=== PATIENT | male | born 1970 | race Two or more races ===

== ENCOUNTER 2018-11-10 10:48 | Emergency (ER) | payer SELFPAY ==
[~2018-11-10] VITALS: Ht 180.3 cm; Wt 104.3 kg
[2018-11-10] MEDS ORDERED: SODIUM CHLORIDE 0.9% 1,000 ML IV ONE ×2 (10:55→14:15)
[2018-11-10] MEDS ORDERED: ONDANSETRON HCL 4 MG/2 ML VIAL IV ONE (11:00)
[2018-11-10] MEDS ORDERED: PROMETHAZINE HCL 25 MG/ML 1ML IV ONE (11:45)
[2018-11-10] MEDS ORDERED: LORazepam 2MG/ML-1ML VIAL IV ONE (11:45)
[2018-11-10 11:57] LABS: Basophils # (auto) 0.1 uL; Basophils % (auto) 0.7 % (0.0-2.0); Eosinophils # (auto) 0 uL; Hematocrit 52.6 % (41.0-53.0); Hemoglobin 18.4 g/dL (13.5-17.5); Lymphocytes # (auto) 2.1 uL; Lymphocytes % (auto) 27.3 % (10.0-50.0); Mean Corpuscular Hemoglobin 32.7 pg (28.0-32.0); Mean Corpuscular Volume 93.6 fL (80.0-100.0); Monocytes # (auto) 0.6 uL; Monocytes % (auto) 7.4 % (0.0-12.0); Neutrophils # (auto) 4.9 uL; Neutrophils % (auto) 64.6 % (37.0-80.0); Platelet Count (auto) 298 10^3/uL (140-450); Red Blood Cells 5.61 10^6/uL (4.5-5.90); Red Cell Distribution Width 12.9 % (11.8-14.3); White Blood Cell 7.6 10^3/uL (4.4-10.8)
[2018-11-10 12:29] LABS: Potassium 3.6 mmol/L (3.5-5.1)
[2018-11-10 12:36] LABS: Albumin 4.1 g/dL (3.4-5.0); BUN/Creatinine Ratio 8.3; Bilirubin, Total 0.7 mg/dL (0.2-1.0); Calcium 8.5 mg/dL (8.5-10.1); Total Protein 8.8 g/dL (6.4-8.2)
[2018-11-10 13:29] LABS: Urine Bacteria NONE SEEN /hpf (None Seen); Urine Blood Negative /uL (Negative); Urine Specific Gravity 1.005 (1.001-1.035); Urine WBC None Seen /hpf (0 - 3)
[2018-11-10 15:00] VITALS: BP 113/86
== END 2018-11-10 15:39 | disposition home or self-care (01) ==
LOC: ER 10:48
DX: F10.920 Alcohol use, unspecified with intoxication, uncomplicated (principal); Y90.0 Blood alcohol level of less than 20 mg/100 ml
CPT/HCPCS: 36415; 80053; 80320; 81001; 85025; 94761; 96361; 96374; 96375; 99283; J2060; J2405; J2550; J7030

== ENCOUNTER 2019-08-19 16:50 | Emergency (ER) | payer BC, OTHER ==
[~2019-08-19] VITALS: Ht 182.9 cm; Wt 90.7 kg
[2019-08-19] MEDS ORDERED: SODIUM CHLORIDE 0.9% 1,000 ML IV ONE (17:16)
[2019-08-19] MEDS ORDERED: PANTOPRAZOLE 40 MG TAB PO ONE (17:30)
[2019-08-19] MEDS ORDERED: PROMETHAZINE HCL 25 MG/ML 1ML IV ONE (17:45)
[2019-08-19] MEDS ORDERED: FOLIC ACID 1 MG, MULTIPLE VITAMIN 10 ML, MAGNESIUM SULF SDV 50% 8 MEQ, THIAMINE INJ 100... INJ SCH ×5 (18:00)
[2019-08-19 18:09] LABS: Basophils # (auto) 0 10 ^3/uL (0-0.2); Basophils % (auto) 0.5 % (0.0-2.0); Eosinophils # (auto) 0 10 ^3/uL (0-0.8); Eosinophils % (auto) 0.1 % (0.0-7.0); Hematocrit 49.9 % (41.0-53.0); Hemoglobin 17.3 g/dL (13.5-17.5); Lymphocytes # (auto) 1.6 10 ^3/uL (0.4-5.4); Lymphocytes % (auto) 24.5 % (10.0-50.0); Mean Corpuscular Hemoglobin 32.1 pg (28.0-32.0); Mean Corpuscular Hgb Conc. 34.7 g/dL (32.0-36.0); Mean Corpuscular Volume 92.4 fL (80.0-100.0); Monocytes # (auto) 0.5 10 ^3/uL (0-1.3); Monocytes % (auto) 7.1 % (0.0-12.0); Neutrophils # (auto) 4.4 10 ^3/uL (1.6-8.6); Neutrophils % (auto) 67.8 % (37.0-80.0); Nucleated Red Blood Cells % 0.2 %; Platelet Count (auto) 246 10^3/uL (140-450); Red Cell Distribution Width 13.1 % (11.8-14.3); White Blood Cell 6.5 10^3/uL (4.4-10.8)
[2019-08-19 18:24] LABS: Albumin 3.8 g/dL (3.4-5.0); Calcium 7.9 mg/dL (8.5-10.1); Potassium 3.7 mmol/L (3.5-5.1)
[2019-08-19 18:29] LABS: BUN/Creatinine Ratio 9.8; Bilirubin, Total 0.7 mg/dL (0.2-1.0)
[2019-08-19 19:20] VITALS: BP 110/66
[2019-08-19] MEDS ORDERED: LORazepam 2MG/ML-1ML VIAL IV ONE (19:45)
[2019-08-19 20:43] LABS: Urine Bacteria NONE SEEN /hpf (None Seen); Urine Blood Negative /uL (Negative); Urine Mucus FEW (None Seen); Urine Specific Gravity 1.003 (1.001-1.035); Urine WBC 1 /hpf (0 - 3)
[2019-08-19 20:58] LABS: Amphetamine Screen, Urine NEGATIVE (NEGATIVE); Barbiturate Scree,Urine NEGATIVE (NEGATIVE); Benzodiazephine Screen, Urine NEGATIVE (NEGATIVE); Cannabinoid Screen, Urine NEGATIVE (NEGATIVE); Cocaine Screen, Urine NEGATIVE (NEGATIVE); Opiate Scree,Urine NEGATIVE (NEGATIVE); Phencyclidine Screen, Urine NEGATIVE (NEGATIVE)
== END 2019-08-19 22:45 | disposition home or self-care (01) ==
LOC: EDBD 16:50 → ER 16:50
DX: F10.129 Alcohol abuse with intoxication, unspecified (principal); F41.9 Anxiety disorder, unspecified; F32.9 Major depressive disorder, single episode, unspecified; Y90.9 Presence of alcohol in blood, level not specified
CPT/HCPCS: 36415; 71045; 80053; 80307; 80320; 81001; 83735; 85025; 93005; 96365; 96366; 96375; 99285; J2060; J2550; J3411; J3475; J7030

== ENCOUNTER 2019-08-31 17:54 | Inpatient (IN) | payer BC, MEDICAID ==
[~2019-08-31] VITALS: Ht 180.3 cm; Wt 102.5 kg
[2019-08-31] MEDS ORDERED: SODIUM CHLORIDE 0.9% 1,000 ML IV ONE (18:18)
[2019-08-31 19:47] LABS: Basophils # (auto) 0 10 ^3/uL (0-0.2); Basophils % (auto) 0.5 % (0.0-2.0); Eosinophils # (auto) 0.1 10 ^3/uL (0-0.8); Eosinophils % (auto) 0.9 % (0.0-7.0); Hematocrit 34.6 % (41.0-53.0); Hemoglobin 12.1 g/dL (13.5-17.5); Lymphocytes # (auto) 1.4 10 ^3/uL (0.4-5.4); Lymphocytes % (auto) 19.6 % (10.0-50.0); Mean Corpuscular Volume 94.4 fL (80.0-100.0); Monocytes # (auto) 1.3 10 ^3/uL (0-1.3); Monocytes % (auto) 17.7 % (0.0-12.0); Neutrophils # (auto) 4.5 10 ^3/uL (1.6-8.6); Neutrophils % (auto) 61.3 % (37.0-80.0); Nucleated Red Blood Cells % 0.4 %; Platelet Count (auto) 198 10^3/uL (140-450); Red Blood Cells 3.66 10^6/uL (4.5-5.90); White Blood Cell 7.4 10^3/uL (4.4-10.8)
[2019-08-31 20:01] LABS: Albumin 2.6 g/dL (3.4-5.0)
[2019-08-31 20:06] LABS: BUN/Creatinine Ratio 14.3; Bilirubin, Total 0.7 mg/dL (0.2-1.0); Total Protein 6.6 g/dL (6.4-8.2)
[2019-08-31 20:17] LABS: Potassium 2.8 mmol/L (3.5-5.1)
[2019-08-31] MEDS ORDERED: POTASSIUM CHL 20MEQ/100ML 100 ML IV ONE (20:30)
[2019-08-31] MEDS ORDERED: PANTOPRAZOLE 40 MG/10 ML VIAL INJ IV ONE ×2 (20:45→21:15)
[2019-08-31] MEDS ORDERED: THIAMINE 100mg/ml INJ (200mg/2ml VIAL) IM ONE (21:00)
[2019-08-31] MEDS ORDERED: THIAMINE HCL 100 MG TAB PO ONE (21:00)
[2019-08-31] MEDS ORDERED: MULTIPLE VITAMIN TAB PO ONE (21:00)
[2019-08-31] MEDS ORDERED: LORazepam 2MG/ML-1ML VIAL IV PRN (21:00)
[2019-08-31] MEDS ORDERED: MAGNESIUM SULFATE 1GM/100ML 100 ML IV ONE (21:00)
[2019-08-31] MEDS ORDERED: FOLIC ACID 1 MG TAB PO ONE (21:00)
[2019-08-31] MEDS ORDERED: LORazepam 2MG/ML-1ML VIAL IV ONE (21:00)
[2019-08-31] MEDS ORDERED: ONDANSETRON HCL 4 MG/2 ML VIAL IV PRN (21:15)
[2019-08-31] MEDS ORDERED: TEMAZEPAM 15 MG CAP PO PRN (21:15)
[2019-08-31] MEDS ORDERED: NITROGLYCERIN 0.4 MG SL TAB SL PRN (21:15)
[2019-08-31] MEDS ORDERED: METOCLOPRAMIDE HCL 5MG/ml INJ 2ml VIAL IV PRN (21:15)
[2019-08-31] MEDS ORDERED: DOCUSATE SOD 100 MG CAP PO PRN (21:15)
[2019-08-31] MEDS ORDERED: HYDROcodone-ACET 5/325MG TAB PO PRN (21:15)
[2019-08-31] MEDS ORDERED: MORPHINE SULF INJ 2 MG/ML SYRINGE 1ML IV PRN ×2 (21:15)
[2019-08-31 22:28] VITALS: BP 116/67
[2019-08-31 23:00] VITALS: BP 116/67
[2019-08-31] MEDS: D5W/SOD CHL 0.9%/KCL 40MEQ 1,000 ML IV SCH (23:06)
[2019-08-31] MEDS: POTASSIUM CHL 20 Meq TABLET PO SCH (23:08)
[2019-09-01] MEDS: LORazepam 2MG/ML-1ML VIAL IV SCH ×4 (00:33→18:00)
[2019-09-01] MEDS: POTASSIUM CHL 20 Meq TABLET PO SCH (00:34)
[2019-09-01 05:08] VITALS: BP 95/58
[2019-09-01] MEDS: D5W/SOD CHL 0.9%/KCL 40MEQ 1,000 ML IV SCH ×2 (05:38→10:31)
[2019-09-01 06:55] LABS: Basophils # (auto) 0 10 ^3/uL (0-0.2); Basophils % (auto) 0.5 % (0.0-2.0); Eosinophils # (auto) 0.1 10 ^3/uL (0-0.8); Eosinophils % (auto) 1.4 % (0.0-7.0); Hematocrit 30.8 % (41.0-53.0); Hemoglobin 10.8 g/dL (13.5-17.5); Lymphocytes # (auto) 1.8 10 ^3/uL (0.4-5.4); Lymphocytes % (auto) 25.5 % (10.0-50.0); Mean Corpuscular Hemoglobin 33.6 pg (28.0-32.0); Mean Corpuscular Hgb Conc. 35.1 g/dL (32.0-36.0); Mean Corpuscular Volume 95.7 fL (80.0-100.0); Monocytes # (auto) 1.3 10 ^3/uL (0-1.3); Monocytes % (auto) 17.4 % (0.0-12.0); Neutrophils % (auto) 55.2 % (37.0-80.0); Nucleated Red Blood Cells % 0.4 %; Platelet Count (auto) 191 10^3/uL (140-450); Red Blood Cells 3.22 10^6/uL (4.5-5.90); Red Cell Distribution Width 14.1 % (11.8-14.3); White Blood Cell 7.2 10^3/uL (4.4-10.8)
[2019-09-01 07:27] LABS: % Iron Saturation 27.5 % (20-55)
[2019-09-01 07:33] LABS: Potassium 4.1 mmol/L (3.5-5.1)
[2019-09-01 07:48] LABS: Albumin 2.3 g/dL (3.4-5.0); BUN/Creatinine Ratio 11.8; Bilirubin, Total 0.7 mg/dL (0.2-1.0); Calcium 7.7 mg/dL (8.5-10.1); Phosphorus 2.8 mg/dL (2.5-4.90); Total Protein 5.7 g/dL (6.4-8.2)
[2019-09-01 09:00] VITALS: BP 97/58
[2019-09-01] MEDS: THIAMINE HCL 100 MG TAB PO SCH (09:53)
[2019-09-01] MEDS: MULTIPLE VITAMIN TAB PO SCH (09:54)
[2019-09-01] MEDS: FOLIC ACID 1 MG TAB PO SCH (09:54)
[2019-09-01] MEDS: ALUM & MAG HYDROX-SIMETH LIQ(MAALOX) 30 ML PO PRN (10:00)
[2019-09-01 13:00] VITALS: BP 95/57
[2019-09-01 17:00] VITALS: BP 104/65
[2019-09-01 22:00] VITALS: BP 108/62
[2019-09-01] MEDS: PANTOPRAZOLE 40 MG/10 ML VIAL INJ IV SCH (22:38)
[2019-09-02] VITALS (8 sets, daily range): BP systolic 100–118; BP diastolic 60–73
[2019-09-02] MEDS: LORazepam 2MG/ML-1ML VIAL IV SCH ×2 (06:14→18:00)
[2019-09-02] MEDS: MULTIPLE VITAMIN TAB PO SCH (10:55)
[2019-09-02] MEDS: FOLIC ACID 1 MG TAB PO SCH (10:55)
[2019-09-02] MEDS: THIAMINE HCL 100 MG TAB PO SCH (10:55)
[2019-09-02] MEDS: ALUM & MAG HYDROX-SIMETH LIQ(MAALOX) 30 ML PO PRN (14:16)
[2019-09-02] MEDS: LORazepam 2MG/ML-1ML VIAL IV PRN (21:23)
[2019-09-02] MEDS: PANTOPRAZOLE 40 MG/10 ML VIAL INJ IV SCH (21:23)
[2019-09-03] MEDS: LORazepam 2MG/ML-1ML VIAL IV PRN (04:38)
[2019-09-03 05:44] VITALS: BP 104/69
[2019-09-03 08:00] VITALS: BP 105/48
[2019-09-03 08:52] VITALS: BP 105/48
[2019-09-03] MEDS: FOLIC ACID 1 MG TAB PO SCH (09:42)
[2019-09-03] MEDS: THIAMINE HCL 100 MG TAB PO SCH (09:42)
[2019-09-03] MEDS: MULTIPLE VITAMIN TAB PO SCH (09:42)
[2019-09-03] MEDS ORDERED: LORazepam 2MG/ML-1ML VIAL IV SCH (10:00)
[2019-09-03] MEDS ORDERED: FERR-7 PO (12:29)
[2019-09-03 13:00] VITALS: BP 102/69
[2019-09-03 14:01] VITALS: BP 102/69
[2019-09-03] MEDS: ALUM & MAG HYDROX-SIMETH LIQ(MAALOX) 30 ML PO PRN (14:53)
== END 2019-09-03 17:09 | disposition home or self-care (01) | DRG 775 ==
LOC: ER 17:54 → TELE 17:55 → TELE-CENTR 22:28
PROVIDERS: ADMIT Hospitalist; ATTEND Internal Medicine Nephrology
DX: F10.229 Alcohol dependence with intoxication, unspecified (principal); S09.8XXA Other specified injuries of head, initial encounter; K70.10 Alcoholic hepatitis without ascites; R55 Syncope and collapse; E87.1 Hypo-osmolality and hyponatremia; E66.9 Obesity, unspecified; D50.9 Iron deficiency anemia, unspecified; E87.6 Hypokalemia; S01.01XA Laceration without foreign body of scalp, initial encounter; R27.0 Ataxia, unspecified; K29.20 Alcoholic gastritis without bleeding; W18.39XA Other fall on same level, initial encounter; Y93.01 Activity, walking, marching and hiking; Z91.81 History of falling; Z91.19 Patient's noncompliance with other medical treatment and regimen; Z68.31 Body mass index [BMI] 31.0-31.9, adult; Z82.49 Family history of ischemic heart disease and other diseases of the circulatory system; Z83.3 Family history of diabetes mellitus; Y92.89 Other specified places as the place of occurrence of the external cause; Y99.8 Other external cause status; R00.0 Tachycardia, unspecified
CPT/HCPCS: 36415; 70450; 70486; 70551; 71045; 72125; 80053; 80061; 80320; 83036; 83540; 83550; 83735; 83970; 84100; 85025; 85045; 87081; 93306; 95819; 96361; 96374; C9113; G0378; J2405; J3480